=== PATIENT | female | born 1950 | race Caucasian/White ===

== ENCOUNTER 2018-03-26 12:19 | Emergency (ER) | payer BC, MEDICARE ==
[2018-03-26 12:42] VITALS: BP 114/56
--- NOTE | 2018-03-26 13:10 | UC ---
Skin Complaint HPI - HPI Summary HPI Summary: 67 yo female presents with right leg bruise and varicose veins. She tells me that 2 days ago she noticed a bruise just above her right knee and has had increased varicose veins of the RLE. Also has had some calf cramping and aches for the last 2-3 days. Has hx of vein stripping on this leg. Denies fever, chills, SOB, chest pain, recent leg injury, recent travel, hx of cancer or blood clot. - History of Current Complaint Chief Complaint: UCGeneralIllness Time Seen by Provider: 03/26/18 13:10 Stated Complaint: LEG COMPLAINT Hx Obtained From: Patient Onset/Duration: Sudden Onset Onset Severity: Moderate Current Severity: Moderate Pain Intensity: 5 Pain Scale Used: 0-10 Numeric - Allergy/Home Medications Allergies/Adverse Reactions: Allergies Allergy/AdvReac Type Severity Reaction Status Date / Time morphine Allergy Nausea Verified 03/26/18 12:43 parrot feathers Allergy anaph Uncoded 03/26/18 12:44 ragweeg Allergy Congestion Uncoded 03/26/18 12:44 Review of Systems Constitutional: Negative Skin: Other - Varicose veins right leg Respiratory: Negative Cardiovascular: Negative Gastrointestinal: Negative Neurovascular: Negative Musculoskeletal: Other: - Right calf cramping Neurological: Negative Psychological: Negative All Other Systems Reviewed And Are Negative: Yes PMH/Surg Hx/FS Hx/Imm Hx - Additional Past Medical History Additional PMH: Overactive bladder Endocrine History: Dyslipidemia Cardiovascular History: Cardiac Disease, Hypertension Respiratory History: COPD, Asthma GI/ History: Gastroesophageal Reflux Psychological History: Anxiety, Depression Other History Of: Negative For: Anticoagulant Therapy - Surgical History Surgical History: Yes Surgery Procedure, Year, and Place: RT BIG TOE;TRIPLE BYPASS 06/03; TONSILECTOMY ; HYSTERECTOMY back surgery - Family History Known Family History: Positive: Cardiac Disease, Hypertension, Respiratory Disease - Social History Occupation: Retired Lives: With Family Alcohol Use: None Substance Use Type: None Smoking Status (MU): Former Smoker Type: Cigarettes Have You Smoked in the Last Year: No Physical Exam - Summary Physical Exam Summary: GENERAL: NAD. WDWN. No pain distress. SKIN: 5.0cm linear ecchymosis on superior right knee. No rashes, sores, lesions , or open wounds. NECK: Supple. Nontender. No lymphadenopathy. CHEST: No accessory muscle use. Breathing comfortably and in no distress. CV: Pulses intact PT and DP. Brisk cap refill. MSK: Right leg: Mild TTP in right calf with diffuse varicose veins. Strength 5/ 5. No edema or obvious bony deformities. Negative deven sign. NEURO: Alert. Sensations intact and symmetric B/L LEs PSYCH: Age appropriate behavior. Triage Information Reviewed: Yes Vital Signs: Initial Vital Signs Temp 97.7 F 03/26/18 12:38 Pulse 60 03/26/18 12:38 Resp 16 03/26/18 12:38 BP 114/56 03/26/18 12:38 Pulse Ox 100 03/26/18 12:38 Course/Dx - Course Course Of Treatment: US: IMPRESSION: NO RIGHT LOWER EXTREMITY DEEP VEIN THROMBOSIS. Suspect venous insufficiency and varicose veins. Advised to f/u with PCP if discomfort continues. - Diagnoses Provider Diagnoses: Right calf pain. Varicose veins Discharge - Sign-Out/Discharge Documenting (check all that apply): Discharge/Admit/Transfer - Discharge Plan Condition: Stable Disposition: HOME Patient Education Materials: Venous Insufficiency (DC) Referrals: Reza Roca MD [Primary Care Provider] - Additional Instructions: If you develop a fever, shortness of breath, chest pain, new or worsening symptoms - please call your PCP or go to the ED. - Billing Disposition and Condition Condition: STABLE Disposition: Home
--- NOTE | 2018-03-26 14:25 | RAD ---
HISTORY: Calf pain and swelling COMPARISONS: None relevant TECHNIQUE: Multiple transverse and longitudinal ultrasound images were obtained of the right lower extremity from the level of the common femoral vein inferiorly through to the infrapopliteal veins using grayscale, color Doppler, and spectral Doppler imaging with and without compression and with augmentation. Comparison images were obtained of the contralateral common femoral vein. FINDINGS: VEINS: The venous system of the right lower extremity is compressible throughout its course, with normal flow on color Doppler imaging and normal response to augmentation on spectral Doppler imaging. SOFT TISSUES: Unremarkable. OTHER FINDINGS: None. IMPRESSION: NO RIGHT LOWER EXTREMITY DEEP VEIN THROMBOSIS
== END 2018-03-26 14:40 | disposition home or self-care (01) ==
LOC: UCEAST 12:19
DX: M79.661 Pain in right lower leg (principal); I83.91 Asymptomatic varicose veins of right lower extremity; S70.11XA Contusion of right thigh, initial encounter; Z88.5 Allergy status to narcotic agent; Z91.048 Other nonmedicinal substance allergy status; Z87.891 Personal history of nicotine dependence; X58.XXXA Exposure to other specified factors, initial encounter; Y92.9 Unspecified place or not applicable
CPT/HCPCS: 99212; G0463

== ENCOUNTER 2018-05-16 15:09 | Emergency (ER) | payer BC, MEDICARE ==
--- NOTE | 2018-05-16 16:20 | ED ---
Lower Extremity - HPI Summary HPI Summary: Patient is a 68-year-old female who presents to the emergency department for pain and swelling to her right lower leg. Patient states she has a history of varicose veins. She states when she woke up today her right lower leg was very swollen and painful. She also notes increased low back painand occasional tingling in right foot with certain positions. She has chronic urinary incontinence without change. She denies leg numbness or weakness. She denies CP or SOB. Symptoms are mild-moderate in severity. Movement makes symptoms worse. Rest make symptoms better. - History of Current Complaint Chief Complaint: EDExtremityLower Stated Complaint: RT LEG PAIN Time Seen by Provider: 05/16/18 15:53 Hx Obtained From: Patient Pain Intensity: 6 - Allergies/Home Medications Allergies/Adverse Reactions: Allergies Allergy/AdvReac Type Severity Reaction Status Date / Time morphine Allergy Nausea Verified 05/16/18 15:20 parrot feathers Allergy anaph Uncoded 05/16/18 15:20 ragweeg Allergy Congestion Uncoded 05/16/18 15:20 PMH/Surg Hx/FS Hx/Imm Hx Previously Healthy: Yes Endocrine/Hematology History: Denies: Hx Anticoagulant Therapy, Hx Diabetes, Hx Thyroid Disease Cardiovascular History: Reports: Hx Angina, Hx Coronary Artery Disease, Hx Hypercholesterolemia Denies: Hx Hypertension, Hx Myocardial Infarction, Hx Pacemaker/ICD Respiratory History: Reports: Hx Asthma Denies: Hx Chronic Obstructive Pulmonary Disease (COPD) History: Denies: Hx Renal Disease Musculoskeletal History: Denies: Hx Osteoporosis Neurological History: Denies: Hx Dementia, Hx Seizures Psychiatric History: Denies: Hx Substance Abuse - Surgical History Surgery Procedure, Year, and Place: RT BIG TOE;TRIPLE BYPASS 06/03; TONSILECTOMY ; HYSTERECTOMY back surgery Infectious Disease History: No Infectious Disease History: Denies: Hx Hepatitis, Hx Human Immunodeficiency Virus (HIV), Traveled Outside the [place] in Last 30 Days - Family History Known Family History: Positive: Cardiac Disease, Hypertension, Respiratory Disease - Social History Occupation: Retired Lives: With Family Alcohol Use: None Substance Use Type: Reports: None Hx Tobacco Use: Yes Smoking Status (MU): Former Smoker Type: Cigarettes Have You Smoked in the Last Year: No Review of Systems Constitutional: Negative Cardiovascular: Negative Respiratory: Negative Genitourinary: Negative Positive: Other - Right leg pain and swelling. Low back pain. Neurological: Negative All Other Systems Reviewed And Are Negative: Yes Physical Exam Triage Information Reviewed: Yes Vital Signs On Initial Exam: Initial Vitals Temp Pulse Resp BP Pulse Ox 97.6 F 83 18 150/72 98 05/16/18 15:15 05/16/18 15:15 05/16/18 15:15 05/16/18 15:15 05/16/18 15:15 Vital Signs Reviewed: Yes Appearance: Positive: Well-Appearing - Pt. lying in bed in NAD. Skin: Positive: Warm, Dry Head/Face: Positive: Normal Head/Face Inspection Eyes: Positive: Normal Neck: Positive: Supple Musculoskeletal: Positive: Other - 5/5 strength in bilateral LEs. Negative straight leg test. Pain on palpation of right calf. Varicose veins noted. No wounds or erythema. Foot is warm with good pulse. Pain on palpation to low back and right SI joint. Neurological: Positive: Normal, CN Intact II-III Psychiatric: Positive: Affect/Mood Appropriate Diagnostics - Vital Signs Vital Signs Temp Pulse Resp BP Pulse Ox 05/16/18 15:15 97.6 F 83 18 150/72 98 - Laboratory Lab Statement: Any lab studies that have been ordered have been reviewed, and results considered in the medical decision making process. Lower Extremity Course/Dx - Course Course Of Treatment: Pt. presenting for right calf pian and swelling as well as pain to right low back. She has no neuro deficts. VS stable. Well appearing. Will obtain x ray lumbar spine and venous duplex. Xray shows post surgical changes and degenerative changes without acute findings, reading per radiology. U/S is negative for acute findings, reading per radiology. Results discussed. Advised tylenol for pain as directed. To avoid bending and heavy lifting. Apply warm compress to back. Elevate legs and avoid standing for long periods of time. To f.u with ortho and PCP. To return to ER if symptoms change or worsen. Pt. understands and agrees with plan. - Diagnoses Differential Diagnosis/HQI/PQRI: Positive: Arthritis, DVT, Fracture (Closed), Sciatica, Sprain, Strain, Tendonitis Provider Diagnoses: Lumbar strain, Venous insufficiency Discharge - Sign-Out/Discharge Documenting (check all that apply): Patient Departure - Discharge Plan Condition: Good Disposition: HOME Patient Education Materials: Low Back Strain (ED), Venous Insufficiency (DC) Referrals: Reza Roca MD [Primary Care Provider] - Additional Instructions: Schedule a follow up appointment with your spine doctor and your family doctor Tylenol for pain as directed Elevate legs and avoid standing for long periods of time Avoid bending and heavy lifting Return to ER if symptoms change or worsen - Billing Disposition and Condition Condition: GOOD Disposition: Home
--- NOTE | 2018-05-16 17:04 | RAD ---
INDICATION: Right lower extremity swelling and pain. COMPARISON: Comparison is made with a prior study from March 26, 2018. TECHNIQUE: Multiple real-time, color flow and Doppler tracings of the right lower extremity were obtained. FINDINGS: The common femoral, femoral, profunda femoral and popliteal veins all demonstrate normal compressibility, augmentation with compression and phasic response with respiration. The posterior tibial and peroneal veins demonstrate normal compressibility and augmentation with compression. IMPRESSION: NO EVIDENCE FOR DEEP VENOUS THROMBOSIS.
--- NOTE | 2018-05-16 17:22 | RAD ---
INDICATION: Low back pain. COMPARISON: Comparison is made with a prior study from November 13, 2011. TECHNIQUE: 5 views of the lumbar spine were obtained including lateral, oblique, AP and a coned-down lateral view of the lumbar sacral junction. FINDINGS: There is a moderate lumbar scoliosis convex toward the right side which has progressed from the prior study. The patient is status post posterior spinal fusion at the L4-L5 level with pedicle screws. There is also a disc prosthesis present. No fracture is seen. There is mild to moderate degenerative disc disease at the L2-L3, L3-L4 and L5-S1 levels. IMPRESSION: 1. SCOLIOSIS. 2. STATUS POST POSTERIOR SPINAL FUSION L4-L5 level. 3. MILD TO MODERATE DEGENERATIVE DISC DISEASE.
[2018-05-16 18:08] VITALS: BP 127/63
== END 2018-05-16 18:05 | disposition home or self-care (01) ==
LOC: ED 15:09
DX: S39.012A Strain of muscle, fascia and tendon of lower back, initial encounter (principal); X58.XXXA Exposure to other specified factors, initial encounter; Y92.9 Unspecified place or not applicable; I87.2 Venous insufficiency (chronic) (peripheral); M41.9 Scoliosis, unspecified; M51.37 Other intervertebral disc degeneration, lumbosacral region; R32 Unspecified urinary incontinence; F17.200 Nicotine dependence, unspecified, uncomplicated; Z98.1 Arthrodesis status; Z86.79 Personal history of other diseases of the circulatory system; Z88.5 Allergy status to narcotic agent
CPT/HCPCS: 72110; 99281

== ENCOUNTER 2019-01-09 08:40 | Day surgery (SDC) | payer BC, MEDICARE ==
[~2019-01-09 08:40] MED LIST: Acetaminophen TAB* 325 MG PO PRN; Buffered Lidocaine 1% SYRIN* 1 ML/SYRINGE INTRADERM ONE
[2019-01-09] MEDS ORDERED: Lidocaine 1%* 5 ML VIAL ONE (09:29)
[2019-01-09] MEDS ORDERED: Cyclopentolate 1% OPTH.SOL* 2 ML BTL ONE (09:29)
[2019-01-09] MEDS ORDERED: Lidocaine 2% EPI 1:200000 MPF*10-20 ML VIAL ONE (09:29)
[2019-01-09] MEDS ORDERED: Ketorolac 0.5% OPHTH (NF) 0.5 % 5 ML BTL ONE (09:29)
[2019-01-09] MEDS ORDERED: Phenylephrine OPHTH SOL 2.5%* 2 ML ONE (09:29)
[2019-01-09] MEDS ORDERED: acetaZOLAMIDE TAB* 250 MG ONE (09:29)
[2019-01-09] MEDS ORDERED: Proparacaine 0.5% OPHTH.SOL* 15 ML BTL ONE (09:29)
[2019-01-09] MEDS ORDERED: Neomycin/Polymy/Dex OPTH.SUSP* MAXITROL 0.1% 5 ML ONE (09:29)
[2019-01-09] MEDS ORDERED: Povidone Iodine 5% OPTH* 30 ML BTL ONE (09:29)
[2019-01-09] MEDS ORDERED: fentaNYL* 50 MCG/ML 2 ML VIAL (100 MCG VIAL) ONE (10:37)
[2019-01-09] MEDS ORDERED: Midazolam* 1 MG/ML 2 ML VIAL (2 MG) ONE (10:38)
--- NOTE | 2019-01-09 11:50 | OP ---
OPERATIVE NOTE: DATE OF OPERATION: 01/09/19 DATE OF : 52 SURGEON: Reza Pond M.D. PREOPERATIVE DIAGNOSIS: Cataract, left eye. POSTOPERATIVE DIAGNOSIS: Cataract, left eye. OPERATIVE PROCEDURE: Extracapsular cataract extraction with intraocular lens implant, left eye. PROCEDURE: The patient was brought to the operating room after being given 1/2% Alcaine with epineph rine drops in the preoperative area. The eye was prepped and draped in the usual sterile fashion. S terile drape and eyelid speculum were placed. Again, topical 1/2% Alcaine with epinephrine was given . A paracentesis incision was made at the 3 o'clock position with the No.75 blade. Clear cornea inc ision 2.2 x 2.2-mm was created at the 6 o'clock position starting at the anterior limbus using the 2. 2-mm keratome. The anterior chamber was irrigated with 0.4 mL of 1% non-preservative intracameral li docaine and filled with DisCoVisc. A capsulorrhexis was completed using the cystotome and the Utrata forceps. Hydrodissection was performed with balanced salt solution. The lens nucleus was removed wi th the Phacoemulsification handpiece without incident. Cortex was removed with the irrigation-aspira tion handpiece. The capsular bag was re-inflated using DisCoVisc and an [id number] 22.5 implant was inse rted with the shooter. The irrigation-aspiration handpiece was used to remove all residual DisCoVisc . The eye was refilled with balanced salt solution and the wound checked and found to be watertight. Topical Maxitrol drops were given. [id number]/[facility] #: [id number]
[2019-01-09 12:07] VITALS: BP 140/59
== END 2019-01-09 11:50 | disposition home or self-care (01) ==
LOC: OREAST 08:40
PROVIDERS: ATTEND Specialist
DX: H25.12 Age-related nuclear cataract, left eye (principal); I10 Essential (primary) hypertension; E78.00 Pure hypercholesterolemia, unspecified; J45.909 Unspecified asthma, uncomplicated; I25.10 Atherosclerotic heart disease of native coronary artery without angina pectoris; Z95.1 Presence of aortocoronary bypass graft; G47.33 Obstructive sleep apnea (adult) (pediatric); K21.9 Gastro-esophageal reflux disease without esophagitis; M19.90 Unspecified osteoarthritis, unspecified site; Z87.891 Personal history of nicotine dependence; F43.10 Post-traumatic stress disorder, unspecified
CPT/HCPCS: A9270-GY; J2250; J3010; V2632

== ENCOUNTER 2019-01-16 09:25 | Day surgery (SDC) | payer BC, MEDICARE ==
[2019-01-16] MEDS ORDERED: Midazolam* 1 MG/ML 2 ML VIAL (2 MG) ONE (11:24)
[2019-01-16] MEDS ORDERED: Cyclopentolate 1% OPTH.SOL* 2 ML BTL ONE (11:50)
[2019-01-16] MEDS ORDERED: Ketorolac 0.5% OPHTH (NF) 0.5 % 5 ML BTL ONE (11:50)
[2019-01-16] MEDS ORDERED: Lidocaine 2% EPI 1:200000 MPF*10-20 ML VIAL ONE (11:50)
[2019-01-16] MEDS ORDERED: acetaZOLAMIDE TAB* 250 MG ONE (11:50)
[2019-01-16] MEDS ORDERED: Phenylephrine OPHTH SOL 2.5%* 2 ML ONE (11:50)
[2019-01-16] MEDS ORDERED: Neomycin/Polymy/Dex OPTH.SUSP* MAXITROL 0.1% 5 ML ONE (11:50)
[2019-01-16] MEDS ORDERED: Proparacaine 0.5% OPHTH.SOL* 15 ML BTL ONE (11:50)
[2019-01-16] MEDS ORDERED: Povidone Iodine 5% OPTH* 30 ML BTL ONE (11:50)
[2019-01-16] MEDS ORDERED: Lidocaine 1%* 5 ML VIAL ONE (11:50)
[2019-01-16 13:11] VITALS: BP 135/73
--- NOTE | 2019-01-16 14:25 | OP ---
OPERATIVE NOTE: DATE OF OPERATION: 01/16/19 - [facility] DATE OF : 52 SURGEON: Reza Pond M.D. PREOPERATIVE DIAGNOSIS: Cataract, right eye. POSTOPERATIVE DIAGNOSIS: Cataract, right eye. OPERATIVE PROCEDURE: Extracapsular cataract extraction with intraocular lens implant, right eye. PROCEDURE: The patient was brought to the operating room after being given 1/2 % Alcaine with epinephrine drops in the preoperative area. The eye was prepped and draped in the usual sterile fashion. Sterile drape and eyelid speculum were placed. Again, topical 1/2% Alcaine with epinephrine was given. A paracentesis incision was made at the 9 o'clock position with the No.75 blade. Clear cornea incision 2.2 x 2.2-mm was created at the 12 o'clock position starting at the anterior limbus using the 2.2-mm keratome. The anterior chamber was irrigated with 0.4 mL of 1% non-preservative intracameral lidocaine and filled with DisCoVisc. A capsulorrhexis was completed using the cystotome and the Utrata forceps. Hydrodissection was performed with balanced salt solution. The lens nucleus was removed with the Phacoemulsification handpiece without incident. Cortex was removed with the irrigation-aspiration handpiece. The capsular bag was re-inflated using DisCoVisc and an [id number] implant was inserted with the shooter. The irrigation-aspiration handpiece was used to remove all residual DisCoVisc. The eye was refilled with balanced salt solution and the wound checked and found to be watertight. Topical Maxitrol drops were given. [id number]/[facility] #: [id number] MTDD
== END 2019-01-16 12:02 | disposition home or self-care (01) ==
LOC: OREAST 09:25
PROVIDERS: ATTEND Specialist
DX: H25.11 Age-related nuclear cataract, right eye (principal); I10 Essential (primary) hypertension; E78.00 Pure hypercholesterolemia, unspecified; J45.909 Unspecified asthma, uncomplicated; Z95.1 Presence of aortocoronary bypass graft; G47.33 Obstructive sleep apnea (adult) (pediatric); F43.10 Post-traumatic stress disorder, unspecified
CPT/HCPCS: A9270-GY; J2250; V2632